=== PATIENT | male | born 1985 | race Caucasian/White ===

== ENCOUNTER 2023-03-01 11:09 | Emergency (ER) | payer SELFPAY ==
[~2023-03-01] VITALS: Wt 113.4 kg
[2023-03-01] MEDS ORDERED: CLINDAMYCIN HC300 MG PO (11:33)
[2023-03-01] MEDS ORDERED: NAPROSYN500 MG PO (11:33)
== END 2023-03-01 11:41 | disposition home or self-care (01) ==
LOC: ED 11:09
DX: K02.9 Dental caries, unspecified (principal); Z88.0 Allergy status to penicillin; Z91.040 Latex allergy status